=== PATIENT | female | born 1955 | race Caucasian/White ===

== ENCOUNTER 2025-01-17 12:42 | Outpatient (CLI) | payer OTHER, MEDICAID, SELFPAY ==
--- NOTE | 2025-01-17 13:00 | MR_ITS ---
WS: [id number] MRI LUMBAR SPINE NONCONTRAST HISTORY: M54.9 - Dorsalgia, unspecified COMPARISON: None available. TECHNIQUE: Sagittal and axial multisequence imaging is submitted. C4 anterolisthesis by 3 mm. Moderate LEFT scoliosis lumbar spine. [place] of the curvature centered at L2-3. Advanced degenerative disc disease at L2-3 and L3-4. Small amount of marrow edema involving the endplates of L2 and L3. No acute fracture. Conus terminates normally at L1-2 disc level. L1-L2: Mild asymmetric disc bulging to the LEFT. Mild LEFT foraminal stenosis. L2-L3: Mild disc bulging with facet and ligamentum flavum hypertrophy. Moderate bilateral foraminal stenosis predominantly due to facet disease and osteophytes encroaching into the foramina. L3-L4: Mild annular disc bulging with facet and ligamentum flavum hypertrophy. Very mild narrowing of the subarticular recesses. Mild to moderate bilateral foraminal stenosis. L4-L5: Diffuse disc bulging with a broad-based LEFT foraminal disc protrusion. There is very slight disc contact on the traversing nerve roots, LEFT greater than RIGHT. Small amount of fluid in the facet joints. Mild bilateral subarticular recess and foraminal stenosis. L5-S1: Diffuse disc bulging with a central disc protrusion. Minimal contact on the S1 nerve roots. Bilateral facet joint arthritis. Minimal foraminal narrowing. Paravertebral soft tissues are negative. MR/MR lumbar spine wo con* [id number] IMPRESSION: 1. Degenerative LEFT scoliosis lumbar spine. 2. Advanced degenerative disc disease at L2-3 and L3-4. 3. No acute fractures. 4. No high-grade central or foraminal stenosis. 5. Mild to moderate bilateral foraminal stenosis at L3-4. 6. Very mild foraminal stenosis at L5-S1. 7. Moderate foraminal stenosis at L2-3. 8. Broad-based LEFT foraminal disc protrusion at L4-5. Mild disc contact on th e traversing nerve roots, LEFT greater than RIGHT. Mild subarticular recess and foraminal stenosis at L4-5.
== END 2025-01-17 12:43 | disposition home or self-care (01) ==
PROVIDERS: Visit Provider Specialist
DX: M48.061 Spinal stenosis, lumbar region without neurogenic claudication (principal); G89.29 Other chronic pain; M41.86 Other forms of scoliosis, lumbar region; M51.369 Other intervertebral disc degeneration, lumbar region without mention of lumbar back pain or lower extremity pain; M48.07 Spinal stenosis, lumbosacral region; M51.26 Other intervertebral disc displacement, lumbar region; R60.0 Localized edema; M47.896 Other spondylosis, lumbar region; M24.28 Disorder of ligament, vertebrae; M25.78 Osteophyte, vertebrae; M51.379 Other intervertebral disc degeneration, lumbosacral region without mention of lumbar back pain or lower extremity pain; M51.27 Other intervertebral disc displacement, lumbosacral region; M47.897 Other spondylosis, lumbosacral region
CPT/HCPCS: 72148